=== PATIENT | female | born 1935 | race Caucasian/White ===

== ENCOUNTER 2019-04-10 21:26 | Emergency (ER) | payer MEDICARE ==
[~2019-04-10] VITALS: Ht 157.5 cm; Wt 79.4 kg
[2019-04-10 22:20] LABS: BASOPHIL % 0.6 % (0-2); PLATELET COUNT 219 x10^3mcL (130-400); RED CELL DISTRIBUTION WIDTH 14.3 % (11.5-14.5)
[2019-04-10 22:36] LABS: ALKALINE PHOSPHATASE 79 U/L (46-116); ALT/SGPT 29 U/L (14-59); AST/SGOT 38 U/L (15-37); CALCIUM 8.5 mg/dL (8.5-10.1); CARBON DIOXIDE 26.9 mmol/L (21-32); CHLORIDE SERUM 106 mmol/L (98-107); POTASSIUM SERUM 3.7 mmol/L (3.5-5.1); SODIUM SERUM 141 mmol/L (136-145); TOTAL PROTEIN, SERUM 7.7 g/dL (6.4-8.2)
[2019-04-10 22:48] LABS: ALBUMIN 3.2 g/dL (3.4-5.0)
[2019-04-10 22:49] LABS: GLUCOSE SERUM 39 mg/dL (74-106)
[2019-04-10 23:22] LABS: microscopic required? NO
[2019-04-10 23:28] VITALS: BP 129/55
[2019-04-10 23:30] LABS: UA SPECIFIC GRAVITY <=1.005 (1.005-1.035); urine erythrocyte NEGATIVE (NEGATIVE)
== END 2019-04-10 23:28 | disposition short-term general hospital (02) ==
LOC: ED 21:26
PROVIDERS: Emergency Medicine
DX: I63.9 Cerebral infarction, unspecified (principal); E11.649 Type 2 diabetes mellitus with hypoglycemia without coma; I10 Essential (primary) hypertension; E78.00 Pure hypercholesterolemia, unspecified; Z91.010 Allergy to peanuts; Z91.018 Allergy to other foods
CPT/HCPCS: J3490; Q0092